=== PATIENT | male | born 1960 | race Caucasian/White ===

== ENCOUNTER 2021-10-27 07:29 | Emergency (ER) | payer BC ==
[2021-10-27] MEDS ORDERED: LIDOCAINE 1% MPF 5 ML VIAL ONE (08:34)
[2021-10-27] MEDS ORDERED: HYDROCODONE/APAP 5/325 MG TAB ONE ×2 (08:35→09:57)
--- NOTE | 2021-10-27 09:09 | RAD REPORT ---
EXAM DESCRIPTION: RAD - Hand Left 3 View - 10/27/2021 8:49 am CLINICAL HISTORY: ANIMAL BITE COMPARISON: June 2017 FINDINGS: No fracture, dislocation or periosteal reaction noted. No acute bone or joint findings demian ntifiable. No foreign body is seen. Air is present in the soft tissues over the dorsum of the hand an d wrist. Air is also present in the soft tissues along the medial or ulna side of the carpal bones. E xtension into the joint space is not confirmed. IMPRESSION: Soft tissue wound is present the dog bite with air in the soft tissues over the dorsum o f the hand and wrist and ulna side of the carpal bones. Intra-articular extension is not confirmed. No acute bone finding identified.
[2021-10-27] MEDS ORDERED: IBUPROFEN 200 MG TAB PO ONE (09:57)
--- NOTE | 2021-10-27 10:44 | ER ---
Nurse's Notes [facility] Name: Carlos Goff Age: 60 yrs Sex: Male : 1960 Arrival Date: 10/27/2021 Time: 07:31 Bed 19 Private MD: Diagnosis: Bitten by dog;Laceration without foreign body of left hand;Puncture wound without foreign body of left hand Presentation: 10/27 07:33 Chief complaint: Patient states: patient states he was bitten by a dog on his left ap3 hand. patient states he was attempted to break up a fight between his two foster dogs, when he was bitten. Coronavirus screen: At this time, the client does not indicate any symptoms associated with coronavirus-19. Ebola Screen: No symptoms or risks identified at this time. Initial Sepsis Screen: Does the patient meet any 2 criteria? No. Patient's initial sepsis screen is negative. Does the patient have a suspected source of infection? No. Patient's initial sepsis screen is negative. Risk Assessment: Do you want to hurt yourself or someone else? Patient reports no desire to harm self or others. Onset of symptoms was October 27, 2021. 07:33 Method Of Arrival: Ambulatory ap3 07:33 Acuity: ABELARDO 4 ap3 Triage Assessment: 07:37 Bite description: bite sustained to left hand by a dog, animal information: Appearance: ap3 appeared well, is from animal, vaccination(s) is current, was sustained less than 30 minutes ago. General: Appears in no apparent distress. Behavior is calm, cooperative. Pain: Complains of pain in left hand Pain began suddenly. Neuro: Level of Consciousness is awake, alert, obeys commands, Oriented to person, place, time, situation, Speech is normal. Cardiovascular: Patient's skin is warm and dry. Respiratory: Airway is patent Respiratory effort is even, unlabored, Respiratory pattern is regular, symmetrical. Derm: Wound noted left hand. 07:39 Bite description: animal information: Animal control has been notified. ap3 Historical: - Allergies: 07:36 No Known Allergies; ap3 - Home Meds: 07:36 None [Active]; ap3 - PMHx: 07:36 None; ap3 - Immunization history:: Client reports receiving the 2nd dose of the Covid vaccine, Last tetanus immunization: up to date. - Social history:: Smoking status: Patient reports the use of cigarette tobacco products, smokes one pack cigarettes per day. Screenin:38 Abuse screen: Denies threats or abuse. Nutritional screening: No deficits noted. ap3 Tuberculosis screening: No symptoms or risk factors identified. 10:00 Fall Risk None identified. jg9 Assessment: 10:00 Derm: Skin puncture wounds noted to left hand Skin is dry, Skin is pink, warm \T\ dry. jg9 Skin temperature is warm. Vital Signs: 07:33 BP 140 / 89; Pulse 66; Resp 18; Pulse Ox 97% ; Weight 74.84 kg; Height 6 ft. (182.88 ap3 cm); Pain 8/10; 09:00 BP 130 / 90; Pulse 60; Resp 17 S; Pulse Ox 95% on R/A; Pain 5/10; jg9 09:30 BP 146 / 83; Pulse 46; Resp 17 S; Pulse Ox 95% on R/A; Pain 7/10; jg9 10:30 BP 137 / 92; Pulse 50; Resp 17 S; Pain 4/10; jg9 07:33 Body Mass Index 22.38 (74.84 kg, 182.88 cm) ap3 ED Course: 07:31 Patient arrived in ED. mr 07:36 Triage completed. ap3 07:38 Arm band placed on right wrist. ap3 07:40 Shima Blackwell, STEPHANE is Primary Nurse. jg9 08:06 Ruben Canela NP is PHCP. pm1 08:06 Tomasz Flor MD is Attending Physician. pm1 08:50 Hand Left 3 View XRAY In Process Unspecified. EDMS 10:00 Patient has correct armband on for positive identification. Bed in low position. Call jg9 light in reach. 10:43 Dima Zeng MD is Referral Physician. pm1 11:11 No provider procedures requiring assistance completed. jg9 11:12 Patient did not have IV access during this emergency room visit. jg9 Administered Medications: 08:30 Drug: HYDROcodone-acetaminophen 5 mg-325 mg 1 tabs Route: PO; jg9 09:00 Follow up: Response: No adverse reaction; Pain is unchanged, physician notified jg9 09:50 Drug: HYDROcodone-acetaminophen 5 mg-325 mg 1 tabs Route: PO; jg9 10:28 Follow up: Response: No adverse reaction jg9 09:50 Drug: Ibuprofen 600 mg Route: PO; jg9 10:28 Follow up: Response: No adverse reaction jg9 10:27 Drug: Lidocaine (1 %) 5 ml {Note: left hand.} Volume: 5 ml; Route: Infiltration; jg9 10:28 Follow up: Response: No adverse reaction; Marked relief of symptoms jg9 Medication: 11:12 VIS not applicable for this client. jg9 Outcome: 10:44 Discharge ordered by . pm1 11:11 Discharged to home ambulatory. jg9 11:11 Condition: stable 11:11 Discharge instructions given to patient, Instructed on discharge instructions, follow up and referral plans. Demonstrated understanding of instructions, follow-up care, Prescriptions given X 1. 11:12 Patient left the ED. jg9 Signatures: Dispatcher [employer] EDMD Marya CarrasquilloRuben, [employer] ANALYST pm1 Gemma Casas RN RN ap3 Shima Blackwell RN RN jg9 Corrections: (The following items were deleted from the chart) 09:59 09:00 BP 102 / 57; Pulse 65bpm; Resp 17bpm; Spontaneous; Pulse Ox 94% RA; Pain 10; [id number]
--- NOTE | 2021-10-27 10:45 | EDPHYS ---
Physician Documentation [facility] Name: Carlos Goff Age: 60 yrs Sex: Male : 1960 Arrival Date: 10/27/2021 Time: 07:31 Bed 19 Private MD: ED Physician Tomasz Flor HPI: 10/27 08:19 This 60 yrs old Male presents to ER via Ambulatory with complaints of Dog Bite. pm1 08:19 The patient was bitten on the left hand, by a dog, attempting to break up his two dogs pm1 fight. 08:19 Onset: The symptoms/episode began/occurred just prior to arrival. Animal information: pm1 The animal was reported to appear healthy. Animal's vaccinations are up to date. Animal control has been notified, have owned the dog for 1 year. Secondary to the bite the patient reports an abrasion, a laceration, multiple puncture wounds, that are superficial. Associated signs and symptoms: Pertinent positives: swelling at site, Pertinent negatives: motor deficit, numbness distal to wound, suspected foreign body. Severity of symptoms: in the emergency department the symptoms have improved, no bleeding. The patient has not recently seen a physician. Tetanus within 3 years. Historical: - Allergies: 07:36 No Known Allergies; ap3 - Home Meds: 07:36 None [Active]; ap3 - PMHx: 07:36 None; ap3 - Immunization history:: Client reports receiving the 2nd dose of the Covid vaccine, Last tetanus immunization: up to date. - Social history:: Smoking status: Patient reports the use of cigarette tobacco products, smokes one pack cigarettes per day. ROS: 08:19 Constitutional: Negative for fever, chills, and weight loss, Cardiovascular: Negative pm1 for chest pain, palpitations, and edema, Respiratory: Negative for shortness of breath, cough, wheezing, and pleuritic chest pain. 08:19 MS/extremity: Positive for abrasion, laceration, pain, puncture, of the left hand, Negative for decreased range of motion, deformity. 08:19 Skin: Positive for abrasion(s), laceration(s), puncture, of the left hand. 08:19 Neuro: Negative for numbness, tingling. 08:19 All other systems are negative. Exam: 08:19 Constitutional: This is a well developed, well nourished patient who is awake, alert, pm1 and in no acute distress. Head/Face: Normocephalic, atraumatic. 08:19 Cardiovascular: Exam negative for acute changes, Rate: normal, Rhythm: regular, Pulses: no pulse deficits are appreciated. 08:19 Respiratory: Exam negative for acute changes, respiratory distress, shortness of breath. 08:19 Musculoskeletal/extremity: Extremities: grossly normal except: noted in the dorsum of left hand proximal and medial aspect: laceration 1.5 cm long, noted in the inner aspect of left palm: two superficial puncture wounds, noted in the dorsum of left hand medial aspect: abrasion, ROM: intact in all extremities, full active range of motion, in the left hand, Circulation is intact in all extremities. the left hand Sensation intact. 08:19 Skin: Appearance: normal except for affected area, as noted in M/S examination. 08:19 Neuro: Exam negative for acute changes, Orientation: is normal, Mentation: is normal, Motor: moves all fours, Sensation: no obvious gross deficits. Vital Signs: 07:33 BP 140 / 89; Pulse 66; Resp 18; Pulse Ox 97% ; Weight 74.84 kg; Height 6 ft. (182.88 ap3 cm); Pain 8/10; 09:00 BP 130 / 90; Pulse 60; Resp 17 S; Pulse Ox 95% on R/A; Pain 5/10; jg9 09:30 BP 146 / 83; Pulse 46; Resp 17 S; Pulse Ox 95% on R/A; Pain 7/10; jg9 10:30 BP 137 / 92; Pulse 50; Resp 17 S; Pain 4/10; jg9 07:33 Body Mass Index 22.38 (74.84 kg, 182.88 cm) ap3 MDM: 08:06 Patient medically screened. pm1 08:29 Data reviewed: vital signs. Data interpreted: Pulse oximetry: on room air is 97 %. pm1 Interpretation: normal. 10:42 Counseling: I had a detailed discussion with the patient and/or guardian regarding: the pm1 historical points, exam findings, and any diagnostic results supporting the discharge/admit diagnosis, radiology results, the need for outpatient follow up, a family practitioner, suture removal in 10-14 days, to return to the emergency department if symptoms worsen or persist or if there are any questions or concerns that arise at home. 10/27 08:19 Order name: Hand Left 3 View XRAY; Complete Time: 09:13 pm1 Administered Medications: 08:30 Drug: HYDROcodone-acetaminophen 5 mg-325 mg 1 tabs Route: PO; jg9 09:00 Follow up: Response: No adverse reaction; Pain is unchanged, physician notified jg9 09:50 Drug: HYDROcodone-acetaminophen 5 mg-325 mg 1 tabs Route: PO; jg9 10:28 Follow up: Response: No adverse reaction jg9 09:50 Drug: Ibuprofen 600 mg Route: PO; jg9 10:28 Follow up: Response: No adverse reaction jg9 10:27 Drug: Lidocaine (1 %) 5 ml {Note: left hand.} Volume: 5 ml; Route: Infiltration; jg9 10:28 Follow up: Response: No adverse reaction; Marked relief of symptoms jg9 Disposition Summary: 10/27/21 10:44 Discharge Ordered Location: Home pm1 Problem: new pm1 Symptoms: have improved pm1 Condition: Stable pm1 Diagnosis - Bitten by dog pm1 - Laceration without foreign body of left hand pm1 - Puncture wound without foreign body of left hand pm1 Followup: pm1 - With: Emergency Department - When: As needed - Reason: Worsening of condition Followup: pm1 - With: Private Physician - When: 10 - 14 days - Reason: Recheck today's complaints, Continuance of care, Staple/Suture removal, Re-evaluation by your physician Followup: pm1 - With: Dima Zeng MD - When: 2 - 3 days - Reason: Recheck today's complaints, Continuance of care, Re-evaluation by your physician Discharge Instructions: - Discharge Summary Sheet pm1 - Laceration Care, Adult pm1 - Puncture Wound pm1 - Animal Bite, Adult pm1 Forms: - Medication Reconciliation Form pm1 - Thank You Letter pm1 - Antibiotic Education pm1 - Prescription Opioid Use pm1 - Work release form jg9 Prescriptions: - Augmentin 875-125 mg Oral Tablet - take 1 tablet by ORAL route every 12 hours for 10 days; 20 tablet; Refills: 0, pm1 Product Selection Permitted Signatures: Dispatcher [employer] Ruben Joyce NP FINISH OPENER pm1 Gemma Casas RN RN ap3 Shima Blackwell, RN RN jg9
[2021-10-27 11:20] VITALS: O2SAT 95
[2021-10-27 11:23] VITALS: BP 137/92
== END 2021-10-27 11:12 | disposition home or self-care (01) ==
LOC: ER 07:29
DX: S61.412A Laceration without foreign body of left hand, initial encounter (principal); S61.432A Puncture wound without foreign body of left hand, initial encounter; W54.0XXA Bitten by dog, initial encounter; F17.210 Nicotine dependence, cigarettes, uncomplicated
CPT/HCPCS: 99283